=== PATIENT | male | born 1940 | race Caucasian/White ===

== ENCOUNTER 2020-01-24 12:56 | Inpatient (IN) ==
--- NOTE | 2020-01-24 13:24 | Emergency Department Note ---
HPI General Chief complaint: Fall Stated complaint: left hip pain, fall Time Seen by Provider: 01/24/20 13:06 Source: patient and EMS Mode of arrival: EMS Limitations: no limitations History of Present Illness HPI Narrative: Narrative: 79-year-old patient presenting to the emergency department chief complaint of fall. Past medical history is significant for compression fractures chronic pain. Patient reporting mechanism of fall was ground-level mechanical tripped on his oxygen tubing. Patient has not had recent change in medication. Patient did not have prodromal symptoms prior to fall. Patient did not have palpitations. Patient reporting injuries to the left hip which he has chronically had pain in it as well as left shoulder. Related Data Home Medications Medication Instructions Recorded Confirmed tramadol 50 mg tablet 50 mg PO Q8H PRN 01/12/19 01/24/20 docusate sodium [DOK] 100 mg PO BID 01/24/20 01/24/20 fentanyl 1 patch TRANSDERMAL Q72 01/24/20 01/24/20 xenvrxsojcc-gvledoamu-eyxjfflu 1 inh INHALATION DAILY 01/24/20 01/24/20 [Trelegy Ellipta] guaifenesin 1,200 - 2,400 mg PO Q12H 01/24/20 01/24/20 hyoscyamine sulfate 0.125 mg SUBLINGUAL 3-4XD PRN 01/24/20 01/24/20 lorazepam [Ativan] 0.5 - 1 mg PO Q2HP PRN 01/24/20 01/24/20 morphine concentrate 10 - 20 mg PO Q1-2HP PRN 01/24/20 01/24/20 sennosides [senna] 8.6 mg PO DAILY 01/24/20 01/24/20 Allergies Allergy/AdvReac Type Severity Reaction Status Date / Time No Known Drug Allergies Allergy Verified 11/24/18 09:32 Review of Systems ROS ROS Narrative: Narrative: All systems ED: reviewed and negative except as stated. PFSH Narrative Patient History Narrative: Narrative: Medical/Surgical/Family History All Active Problems (Updated 01/24/20 @ 15:01 by Noman Romero MD) Closed fracture of left hip (Acute) Anemia, unspecified (Chronic) Closed compression fracture of L2 vertebra (Chronic) Closed compression fracture of thoracic vertebra (Chronic) Shortness of breath (Chronic) Prostate enlargement (Chronic) COPD (chronic obstructive pulmonary disease) (Chronic) Falls (Chronic) Back pain (Chronic) Right hip pain (Chronic) Unexplained weight loss (Chronic) Tobacco use (Chronic) Renal mass (Chronic) Hemorrhage of rectum and anus (Chronic) Benign prostatic hyperplasia (Chronic) Orthostatic hypotension (Chronic) Neoplasm of ear (Chronic) Multiple pulmonary nodules (Chronic) Inguinal hernia without obstruction or gangrene (Chronic) Pure hypercholesterolemia (Chronic) Blood in stool (Chronic) 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) Unilateral emphysema (Chronic) Catheter-associated urinary tract infection (Chronic) Bladder neck obstruction (Chronic) Urinary tract infection (Chronic) Medical History (Updated 01/24/20 @ 15:01 by Noman Romero MD) Anemia, unspecified (Chronic) Back pain (Chronic) Benign neoplasm of colon (Chronic) Benign prostatic hyperplasia (Chronic) Bladder neck obstruction (Chronic) Blood in stool (Chronic) Catheter-associated urinary tract infection (Chronic) Closed compression fracture of L2 vertebra (Chronic) Closed compression fracture of thoracic vertebra (Chronic) COPD (chronic obstructive pulmonary disease) (Chronic) Dysplasia of prostate (Chronic) Falls (Chronic) Hemorrhage of rectum and anus (Chronic) Inguinal hernia without obstruction or gangrene (Chronic) Multiple pulmonary nodules (Chronic) Neoplasm of ear (Chronic) Orthostatic hypotension (Chronic) Prostate enlargement (Chronic) Pure hypercholesterolemia (Chronic) Renal mass (Chronic) Right hip pain (Chronic) Shortness of breath (Chronic) Tobacco use (Chronic) Unexplained weight loss (Chronic) Unilateral emphysema (Chronic) Surgical History (Updated 01/12/19 @ 11:19 by Jyothi Vargas) History of ankle surgery (Chronic ~1978) Right ankle reconstruction. History of left inguinal hernia repair (Chronic 12/04/14) Family History (Updated 01/12/19 @ 11:27 by Jyothi Vargas) Other No pertinent family history Social History Smoking Status: Current some day smoker Alcohol Intake Frequency: does not drink Substance Use: marijuana Exam Narrative Narrative: Narrative: Primary survey: Airway: Patient without visible external evidence of airway compromise no acute trauma to the oral maxillofacial area is appreciated Breathing: pt with spontaneous respirations, with excellent oxygenation on initial evaluation Circulation: Patient without obvious external hemorrhage in need of acute control, patient is perfusing extremities well without evidence of shock Disability: Basic neurological examination reveals moving all extremities, mentating appropriately; GCS 15 Secondary survey: General: Alert, interactive, appropriate Head: Atraumatic, normocephalic Eyes: Extraocular movements intact, PERRLA Neck: Trachea midline, full range of motion Chest: Symmetrical chest wall rise, clear to auscultation bilateral without wheezes rales crackles or rubs Cardiovascular: Patient with excellent perfusion to the extremities, regular rate and rhythm without M/R/G Abdomen: Nontender nondistended normoactive bowel sounds no masses no hepatosplenomegaly no rebound no guarding Extremities: Full range of motion joints with the exception of the left hip having significant pain also pain in the left shoulder more anteriorly than anywhere else, extremities are warm well perfused no evidence of neurovascular compromise Neuro: Alert, oriented x3, cranial nerves II through XII grossly intact, normal gait Psychiatric: Normal affect normal mood General Limitations: no limitations Course Vital Signs Vital signs: Vital Signs Temperature 97.6 F 01/24/20 12:56 Pulse Rate 70 01/24/20 12:56 Respiratory Rate 18 01/24/20 12:56 Blood Pressure 118/76 01/24/20 12:56 Pulse Oximetry (%) 99 01/24/20 12:56 Temperature 97.6 F 01/24/20 12:56 Pulse Rate 66 01/24/20 15:37 Respiratory Rate 18 01/24/20 12:56 Blood Pressure 118/71 01/24/20 15:37 Pulse Oximetry (%) 99 01/24/20 15:37 [facility] MDM Narrative Medical decision making narrative: Narrative: Focus of initial assessment was hemodynamic stability, however this was frequently reassessed during stay in the emergency department as this is a highly dynamic aspect of trauma. Focus was on injuries to the head chest abdomen and pelvis primarily with additional concerns for extremity injury taking care to avoid distracting injuries. Despite patient appearing well we assumed there were potential severe injuries that we need to identify. In this patient's case the following injuries were identified right hip strain sprain, right hip femoral neck fracture, left shoulder strain sprain. Differential diagnosis for the fall includes medication induced, psychiatric disorders, syncope, presyncope, vertigo, electrolyte abnormality, hypoglycemia, cardiac arrhythmia, postural changes, dehydration, and brainstem lesions. Patient did sustain ground-level mechanical fall. Patient with x-rays and imaging to areas of concern to assess for potential fracture/dislocation. Patient noted to have a fracture of his right hip femoral neck. Pain controlled with fentanyl. Discussed case with Dr. Lopez and the consensus medical opinion is patient needs surgical repair. Discussed the case with and the consensus medical opinion is to admit the patient under the medical service with orthopedic surgery consulting. Lab Data Result diagrams: 01/24/20 13:15 01/24/20 13:15 Labs: Lab Results 01/24/20 01/24/20 Range/Units 13:15 13:15 WBC 8.7 (4.50-11.00) K/mcL RBC 3.89 L (4.63-6.08) M/mcL Hgb 12.4 L (13.7-17.5) g/dL Hct 38.4 L (40.1-51.0) % MCV 98.7 (80.0-100.0) fL MCH 31.9 (26.0-34.0) pg MCHC 32.3 (31.0-36.0) g/dL RDW 14.5 (11.5-14.5) % Plt Count 205 (140-440) K/mcL MPV 9.9 (7.4-10.4) fL Gran % 74.5 (38.0-78.0) % Lymph % (Auto) 17.1 (15.5-49.0) % [place] % (Auto) 6.8 (1.0-12.0) % Eos % (Auto) 1.3 (0.0-7.0) % Baso % (Auto) 0.3 (0.0-2.0) % Gran # 6.45 (1.80-8.00) K/mcL Lymph # (Auto) 1.48 L (1.50-4.80) K/mcL [place] # (Auto) 0.59 (0.10-0.90) K/mcL Eos # (Auto) 0.11 (0.00-0.70) K/mcL Baso # (Auto) 0.03 (0.00-0.30) K/mcL Sodium 142 (133-145) mmol/L Potassium 3.7 (3.3-5.1) mmol/L Chloride 105 (96-108) mmol/L Carbon Dioxide 27 (22-30) mmol/L Anion Gap 10.0 (8-16) BUN 20 (8-23) mg/dl Creatinine 0.8 (0.7-1.2) mg/dl GFR Calculation 85 Glucose 93 (70-105) mg/dL Calcium 8.3 L (8.6-10.4) mg/dl Total Bilirubin 0.5 (0.0-1.0) mg/dL AST 18 (0-37) U/l ALT 11 (0-40) U/l Alkaline Phosphatase 78 (39-117) U/L Total Protein 6.1 (5.9-8.4) gm/dL Albumin 3.0 L (3.2-5.2) gm/dL Globulin 3.1 (2.2-3.7) gm/dL Albumin/Globulin Ratio 1.0 (1.0-2.3) Discharge Plan Patient/Caregiver Discharge Instructions Pt seen by PATHOLOGY TRANSCRIPTIONIST/PA only: No Clinical Impression: Closed fracture of left hip Qualifiers: Encounter type: initial encounter Qualified Code(s): S72.002A - Fracture of unspecified part of neck of left femur, initial encounter for closed fracture Patient Disposition: Xfer As Inpt ([facility]) Condition: Fair Follow up with: Larissa Longoria MD [Primary Care Provider] - Prescriptions: No Action tramadol [Ultram] 50 mg tablet 50 mg PO Q8H PRN (Reason: Pain) RF: 0 lorazepam [Ativan] 0.5 mg tablet 0.5 - 1 mg PO Q2HP PRN (Reason: Anxiety) RF: 0 fentanyl 12 mcg/hr patch 72 hour 1 patch transdermal Q72 RF: 0 morphine concentrate 100 mg/5 mL (20 mg/mL) Solution 10 - 20 mg PO Q1-2HP PRN (Reason: Pain) RF: 0 guaifenesin 1,200 mg Tablet Extended Release 12hr 1,200 - 2,400 mg PO Q12H RF: 0 docusate sodium [DOK] 100 mg capsule 100 mg PO BID RF: 0 hyoscyamine sulfate 0.125 mg tablet, sublingual 0.125 mg sublingual 3-4XD PRN (Reason: Nausea) RF: 0 Trelegy Ellipta 100-62.5-25 mcg blister with device 1 inh INHALATION DAILY RF: 0 senna 8.6 mg Capsule 8.6 mg PO DAILY RF: 0
[2020-01-24 13:53] LABS: Basophils # (Auto) 0.03 K/mcL (0.00-0.30); Basophils % (Auto) 0.3 % (0.0-2.0); Eosinophils # (Auto) 0.11 K/mcL (0.00-0.70); Eosinophils % (Auto) 1.3 % (0.0-7.0); Granulocytes % (Auto) 74.5 % (38.0-78.0); Hematocrit 38.4 % (40.1-51.0); Hemoglobin 12.4 g/dL (13.7-17.5); Lymphocytes # (Auto) 1.48 K/mcL (1.50-4.80); Lymphocytes % (Auto) 17.1 % (15.5-49.0); Mean Cell Volume 98.7 fL (80.0-100.0); Mean Corpuscular HGB Conc 32.3 g/dL (31.0-36.0); Mean Platelet Volume 9.9 fL (7.4-10.4); Monocytes # (Auto) 0.59 K/mcL (0.10-0.90); Monocytes % (Auto) 6.8 % (1.0-12.0); Platelet Count 205 K/mcL (140-440); RBC 3.89 M/mcL (4.63-6.08); Red Cell Distribution Width 14.5 % (11.5-14.5); WBC 8.7 K/mcL (4.50-11.00)
[2020-01-24 14:21] LABS: ALT/SGPT 11 U/l (0-40); AST/SGOT 18 U/l (0-37); Alkaline Phosphatase 78 U/L (39-117); Bilirubin,Total 0.5 mg/dL (0.0-1.0); Blood Urea Nitrogen 20 mg/dl (8-23); Calcium 8.3 mg/dl (8.6-10.4); Carbon Dioxide 27 mmol/L (22-30); Chloride 105 mmol/L (96-108); Globulin 3.1 gm/dL (2.2-3.7); Glomerular Filtration Rate 85; Glucose 93 mg/dL (70-105)
--- NOTE | 2020-01-24 15:12 | XRay Report ---
HISTORY: Fell with left shoulder injury FINDINGS: No fracture or dislocation are present. There is moderate osteoarthritis of the glenohumeral joint and mild arthritis at the acromioclavicular joint. Medial to the neck of the humerus there is a 1.6 cm calcification with sclerotic borders. This is probably heterotopic calcification. IMPRESSION: Arthritis and no fracture Interpreted and Authenticated by: Noe Coleman 01/24/20
--- NOTE | 2020-01-24 15:13 | XRay Report ---
HISTORY: Fell left hip injury FINDINGS: There is an acute transverse fracture through the femoral neck. The femur is retracted proximally and there is rotation of the femoral head. No callus has formed. Patient has diffuse osteoporosis throughout the pelvis and hips. The right hip is normal. Degenerative changes are seen in the lumbar spine. IMPRESSION: Fractured left femoral neck with moderate deformity Interpreted and Authenticated by: Noe Coleman 01/24/20
--- NOTE | 2020-01-24 15:15 | XRay Report ---
HISTORY: Fell, hip fracture, preop FINDINGS: Lungs are mildly hyperinflated. 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 There is no evidence of pneumonia, mass or congestive heart failure. The heart size is normal. IMPRESSION: COPD with pulmonary fibrosis Interpreted and Authenticated by: Noe Coleman 01/24/20
[2020-01-24] MEDS: fentaNYL 100 MCG/2 ML VIAL IV PRN ×2 (15:40→18:29)
--- NOTE | 2020-01-24 16:48 | Internal Med History&Physical ---
HPI History of Present Illness Patient information: Note initiated : 01/24/20 at 4:44 pm Service Date, if different from initiated Date: [] Patient: Gil Nicholas a 79 y/o M admitted on for left hip pain, fall. Chief Complaint: [] History of present illness: Mr. Nicholas is a 79 year old M presents to the ED with left hip pain. Patient was walking and tripped on his oxygen tube falling on his left hip with immediate pain. ED and found to have a left hip fracture. 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 He continues to smoke. Work-up in the ED unremarkable labs and imaging. Jessica contacted. Patient is high risk for surgery given his end-stage COPD and he understands the risks perioperatively. Review of Systems: Positive as above. Denies headache/fever/chills/nausea/vomiting/chest or abdominal pain/cough/dyspnea/diarrhea. 10 point review of system reviewed negative [facility] Medical History (Updated 01/24/20 @ 15:01 by Noman Romero MD) Anemia, unspecified (Chronic) Back pain (Chronic) Benign neoplasm of colon (Chronic) Benign prostatic hyperplasia (Chronic) Bladder neck obstruction (Chronic) Blood in stool (Chronic) Catheter-associated urinary tract infection (Chronic) Closed compression fracture of L2 vertebra (Chronic) Closed compression fracture of thoracic vertebra (Chronic) COPD (chronic obstructive pulmonary disease) (Chronic) Dysplasia of prostate (Chronic) Falls (Chronic) Hemorrhage of rectum and anus (Chronic) Inguinal hernia without obstruction or gangrene (Chronic) Multiple pulmonary nodules (Chronic) Neoplasm of ear (Chronic) Orthostatic hypotension (Chronic) Prostate enlargement (Chronic) Pure hypercholesterolemia (Chronic) Renal mass (Chronic) Right hip pain (Chronic) Shortness of breath (Chronic) Tobacco use (Chronic) Unexplained weight loss (Chronic) Unilateral emphysema (Chronic) Surgical History (Updated 01/12/19 @ 11:19 by Jyothi Vargas) History of ankle surgery (Chronic ~1978) Right ankle reconstruction. History of left inguinal hernia repair (Chronic 12/04/14) Family History (Updated 01/12/19 @ 11:27 by Jyothi Vargas) Other No pertinent family history Social History (Updated 01/24/20 @ 16:46 by Renzo Ferrara DO) marital status: single smoking status: Current some day smoker alcohol intake frequency: does not drink substance use type: marijuana additional history: Family history patient says both parents had heart disease Social history: Patient smokes a pack per day drinks alcohol socially lives by himself MEDS/ALLERGIES Home Medications and Allergies Home Medications Medication Instructions Recorded Confirmed Type tramadol 50 mg tablet 50 mg PO Q8H PRN 01/12/19 01/24/20 History docusate sodium [DOK] 100 mg PO BID 01/24/20 01/24/20 History fentanyl 1 patch TRANSDERMAL Q72 01/24/20 01/24/20 History zwfxtcgobft-aelxlgmlc-dxdoddmh 1 inh INHALATION DAILY 01/24/20 01/24/20 History [Trelegy Ellipta] guaifenesin 1,200 - 2,400 mg PO Q12H 01/24/20 01/24/20 History hyoscyamine sulfate 0.125 mg SUBLINGUAL 3-4XD PRN 01/24/20 01/24/20 History lorazepam [Ativan] 0.5 - 1 mg PO Q2HP PRN 01/24/20 01/24/20 History morphine concentrate 10 - 20 mg PO Q1-2HP PRN 01/24/20 01/24/20 History sennosides [senna] 8.6 mg PO DAILY 01/24/20 01/24/20 History Allergies Allergy/AdvReac Type Severity Reaction Status Date / Time No Known Drug Allergies Allergy Verified 11/24/18 09:32 EXAM Constitutional Vitals: Temp Pulse Resp BP Pulse Ox 97.6 F 66 18 118/71 99 01/24/20 12:56 01/24/20 15:37 01/24/20 12:56 01/24/20 15:37 01/24/20 15:37 Exam: General: Alert, Awake, No acute Distress Eyes/N/T: EOMI, PERRL, dry MM Head/Neck: neck supple, normocephalic atraumatic CV: RRR, No murmurs, normal s1/s2 Pulm: b/l diminished, for long expiratory phase, no wheezing Abd: soft, nontender, +BS x4 Ext: no clubbing/cyanosis/edema Neuro: Alert, no focal deficits, moves all extremities, CN 2-12 grossly intact, symmetrical strength b/l upper/lower, sensations intact b/l upper/lower Skin: warm/dry DATA Data Completed and Pending Labs on day of discharge: Labs from last 24 hours 01/24/20 01/24/20 13:15 13:15 WBC 8.7 RBC 3.89 L Hgb 12.4 L Hct 38.4 L MCV 98.7 MCH 31.9 MCHC 32.3 RDW 14.5 Plt Count 205 MPV 9.9 Gran % 74.5 Lymph % (Auto) 17.1 [place] % (Auto) 6.8 Eos % (Auto) 1.3 Baso % (Auto) 0.3 Gran # 6.45 Lymph # (Auto) 1.48 L [place] # (Auto) 0.59 Eos # (Auto) 0.11 Baso # (Auto) 0.03 Sodium 142 Potassium 3.7 Chloride 105 Carbon Dioxide 27 Anion Gap 10.0 BUN 20 Creatinine 0.8 GFR Calculation 85 Glucose 93 Calcium 8.3 L Total Bilirubin 0.5 AST 18 ALT 11 Alkaline Phosphatase 78 Total Protein 6.1 Albumin 3.0 L Globulin 3.1 Albumin/Globulin Ratio 1.0 A/P Narrative A/P Narrative: A: *Left hip fracture: s/p GLF *COPD(2.5L): on hospice for copd *Tobacco abuse: *Chronic pain: *Anxiety: * P: -Patient at increased risk perioperatively given his end-stage COPD. Patient understands risks, including . -dr Lopez for orthopedic surgery -Pain control -Supplemental O2 and as needed nebs -preop cxr/ekg/ua - -PT/OT -ppx: Postop per Ortho DNR Time Spent With Patient Time: Total time spent is greater than 50% in coordination of care (as documented) at patient's floor/unit and/or counseling patient:
--- NOTE | 2020-01-24 18:20 | Orthopedic History & Physical ---
HPI History of Present Illness Patient information: Note initiated : 01/24/20 at 6:16 pm Service Date, if different from initiated Date: [] Patient: Gil Nicholas a 79 y/o M admitted on for left hip pain, fall. Chief Complaint: [] History of present illness: Mr. Nicholas is a 79 year old Male who had a fall at home today prompting his evaluation in the ED for left hip pain. He was discovered to have a displaced femoral neck fracture of the left hip prompting Orthopaedics consultation. He is currently resting in bed with pain in his left hip. He reports no other pain or symptoms. He denies any chest pain, headache, neck pain, other injuries, weakness, numbness/tingling, or any other acute symptoms. Review of Systems All systems: reviewed and no additional remarkable complaints except as stated [facility] Medical History (Updated 01/24/20 @ 18:25 by Simeon Rivera PA-C) Anemia, unspecified (Chronic) Back pain (Chronic) Benign neoplasm of colon (Chronic) Benign prostatic hyperplasia (Chronic) Bladder neck obstruction (Chronic) Blood in stool (Chronic) Catheter-associated urinary tract infection (Chronic) Closed compression fracture of L2 vertebra (Chronic) Closed compression fracture of thoracic vertebra (Chronic) COPD (chronic obstructive pulmonary disease) (Chronic) Dysplasia of prostate (Chronic) Falls (Chronic) Hemorrhage of rectum and anus (Chronic) Inguinal hernia without obstruction or gangrene (Chronic) Multiple pulmonary nodules (Chronic) Neoplasm of ear (Chronic) Orthostatic hypotension (Chronic) Prostate enlargement (Chronic) Pure hypercholesterolemia (Chronic) Renal mass (Chronic) Right hip pain (Chronic) Shortness of breath (Chronic) Tobacco use (Chronic) Unexplained weight loss (Chronic) Unilateral emphysema (Chronic) Surgical History (Updated 01/12/19 @ 11:19 by Jyothi Vargas) History of ankle surgery (Chronic ~1978) Right ankle reconstruction. History of left inguinal hernia repair (Chronic 12/04/14) Family History (Updated 01/12/19 @ 11:27 by Jyothi Vargas) Other No pertinent family history Social History (Updated 01/24/20 @ 16:46 by Renzo Ferrara DO) marital status: single smoking status: Current some day smoker alcohol intake frequency: does not drink substance use type: marijuana additional history: Family history patient says both parents had heart disease Social history: Patient smokes a pack per day drinks alcohol socially lives by himself MEDS/ALLERGIES Home Medications and Allergies Home Medications Medication Instructions Recorded Confirmed Type tramadol 50 mg tablet 50 mg PO Q8H PRN 01/12/19 01/24/20 History docusate sodium [DOK] 100 mg PO BID 01/24/20 01/24/20 History fentanyl 1 patch TRANSDERMAL Q72 01/24/20 01/24/20 History sqrtlprwjcf-grgzhbdqd-kuerjxrf 1 inh INHALATION DAILY 01/24/20 01/24/20 History [Trelegy Ellipta] guaifenesin 1,200 - 2,400 mg PO Q12H 01/24/20 01/24/20 History hyoscyamine sulfate 0.125 mg SUBLINGUAL 3-4XD PRN 01/24/20 01/24/20 History lorazepam [Ativan] 0.5 - 1 mg PO Q2HP PRN 01/24/20 01/24/20 History morphine concentrate 10 - 20 mg PO Q1-2HP PRN 01/24/20 01/24/20 History sennosides [senna] 8.6 mg PO DAILY 01/24/20 01/24/20 History Allergies Allergy/AdvReac Type Severity Reaction Status Date / Time No Known Drug Allergies Allergy Verified 11/24/18 09:32 Physical Examination Hip left: Gait: other (unable to walke) Tenderness with palpation: anterior, posterior, medial, lateral, greater trochanter and other Pain with motion: internal rotation and hip flexion, internal rotation and hip extension, external rotation and hip flexion, external rotation and hip extension and other Vital Signs Vital signs: Temp Pulse Resp BP Pulse Ox 97.6 F 83 18 120/86 96 01/24/20 12:56 01/24/20 17:41 01/24/20 12:56 01/24/20 17:41 01/24/20 17:41 Constitutional General appearance: no acute distress and alert EENT Eyes pulmonary: nonicteric ENT: oropharynx moist Neck: supple, no lymphadenopathy and no JVD Respiratory Auscultation: bilateral: diminished breath sounds, wheezes and rhonchi Cardiovascular Cardiovascular: regular rate and rhythm Gastrointestinal Gastrointestinal: normoactive bowel sounds, non-tender and non-distended Integumentary Integumentary: normal Extremities Extremities: pulses normal and other (see above hip exam) Neurologic Neurological: normal mental status and CN II-XII normal Psychiatric Psychiatric: mood appropriate Results Labs Result Diagrams: 01/24/20 13:15 01/24/20 13:15 Labs: Abnormal lab results 01/24/20 01/24/20 Range/Units 13:15 13:15 RBC 3.89 L (4.63-6.08) M/mcL Hgb 12.4 L (13.7-17.5) g/dL Hct 38.4 L (40.1-51.0) % Lymph # (Auto) 1.48 L (1.50-4.80) K/mcL Calcium 8.3 L (8.6-10.4) mg/dl Albumin 3.0 L (3.2-5.2) gm/dL H & H 01/24/20 Range/Units 13:15 Hgb 12.4 L (13.7-17.5) g/dL Hct 38.4 L (40.1-51.0) % All other labs normal. A/P Assessment and plan (1) Transcervical fracture of left femur: Status: Acute Comment: I discussed the findings of the x-ray with the patient and treatment options. We discussed the risks and benefits of surgery. We will plan on a Left Hip hemiarthroplasty and the patient agrees and has elected to proceed with surgery. Hospitalists to manage COPD and surgery to be performed on 01-25-20. Time Spent With Patient Time: Total time spent is greater than 50% in coordination of care (as documented) at patient's floor/unit and/or counseling patient:
[2020-01-24] MEDS ORDERED: SENNOSIDES 1 TABLET PO PRN (19:33)
[2020-01-24] MEDS ORDERED: POLYETHYLENE GLYCOL 3350 17 GM PACKET PO PRN (19:33)
[2020-01-24] MEDS ORDERED: POTASSIUM CHLORIDE 40 MEQ in DEXTROSE 5% IN WATER 500 ML IV PRN (19:33)
[2020-01-24] MEDS ORDERED: IPRATROPIUM/ALBUTEROL 3 ML AMPUL.NEB NEB PRN (19:33)
[2020-01-24] MEDS ORDERED: ONDANSETRON 4 MG/2 ML VIAL IV PRN (19:33)
[2020-01-24] MEDS ORDERED: morphine 20 MG/ML ORAL.CONC PO PRN (19:33)
[2020-01-24] MEDS ORDERED: ACETAMINOPHEN W/CODEINE #3 1 TABLET PO PRN (19:33)
[2020-01-24] MEDS ORDERED: HYDROcodone/APAP 5/325MG TABLET PO PRN (19:33)
[2020-01-24] MEDS ORDERED: POTASSIUM CHLORIDE 20 MEQ TABLET PO PRN ×2 (19:33)
[2020-01-24] MEDS ORDERED: MAGNESIUM SULFATE 2 GM/50 ML BAG IV PRN (19:33)
[2020-01-24] MEDS: 0.9 % SODIUM CHLORIDE 1,000 ML IV SCH (19:44)
[2020-01-24] MEDS: 0.9 % SODIUM CHLORIDE 10 ML SYRINGE IV SCH (21:22)
[2020-01-24] MEDS: DOCUSATE SODIUM 100 MG CAPSULE PO SCH (21:29)
[2020-01-24] MEDS: FAMOTIDINE/PF 20 MG/2 ML VIAL IV SCH (21:29)
[2020-01-24 21:39] LABS: Appearance,Urine CLEAR; Bilirubin,Urine NEG (NEG); Color,Urine YELLOW; Culture Indicated,Urine NO; Glucose,Urine (UA) NEGATIVE (NEG); Ketones,Urine 5/TR mg/dL (NEG); Leukocyte Esterase,Urine NEG /uL (NEG); Nitrate,Urine NEG (NEG); Protein,Urine NEG (NEG); Specific Gravity,Urine 1.023 (1.000-1.035); Urine Blood NEG mg/dL (<0.03)
[2020-01-25] MEDS: 0.9 % SODIUM CHLORIDE 10 ML SYRINGE IV SCH ×3 (04:02→21:43)
[2020-01-25] MEDS: LORazepam 0.5 MG TABLET PO PRN ×2 (04:08→22:14)
[2020-01-25 07:09] LABS: Basophils # (Auto) 0.03 K/mcL (0.00-0.30); Basophils % (Auto) 0.3 % (0.0-2.0); Eosinophils # (Auto) 0.05 K/mcL (0.00-0.70); Eosinophils % (Auto) 0.4 % (0.0-7.0); Granulocytes % (Auto) 84.3 % (38.0-78.0); Hematocrit 35.4 % (40.1-51.0); Hemoglobin 11.4 g/dL (13.7-17.5); Lymphocytes # (Auto) 1.05 K/mcL (1.50-4.80); Mean Cell Volume 101.1 fL (80.0-100.0); Mean Corpuscular HGB Conc 32.2 g/dL (31.0-36.0); Mean Platelet Volume 10.3 fL (7.4-10.4); Platelet Count 199 K/mcL (140-440); Red Cell Distribution Width 14.6 % (11.5-14.5); WBC 11.7 K/mcL (4.50-11.00)
--- NOTE | 2020-01-25 07:26 | Internal Med Progress Note ---
SUBJECTIVE Subjective Patient information: Note initiated : 01/25/20 at 7:24 am Service Date, if different from initiated Date: [] Patient: Gil Nicholas a 79 y/o M admitted on 01/24/20 for left hip pain, fall. Chief Complaint: [] Interval history: History of present illness: Mr. Nicholas is a 79 year old M presents to the ED with left hip pain. Patient was walking and tripped on his oxygen tube falling on his left hip with immediate pain. ED and found to have a left hip fracture. 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 He continues to smoke. Work-up in the ED unremarkable labs and imaging. Jessica contacted. Patient is high risk for surgery given his end-stage COPD and he understands the risks perioperatively. 01/24 No overnight events or new complaints. Patient scheduled for surgery later today. Review of Systems: denies headache/fever/chills/nausea/vomiting/chest or abdominal pain/cough/dyspnea/diarrhea. Otherwise see above. Constitutional Vitals: Vital Signs Temp Pulse Resp BP Pulse Ox 98.6 F 71 14 115/69 97 01/25/20 07:02 01/25/20 07:02 01/25/20 07:02 01/25/20 07:02 01/25/20 07:02 Period Temp Pulse Resp BP Sys/Moise Pulse Ox Last 24 Hr 97.6 F-98.9 F 66-94 14-20 115-127/67-86 92-99 Intake and Output 01/24/20 01/25/20 01/25/20 21:59 05:59 13:59 Output Total 75 1 Balance -75 -1 Weight 54.063 kg Intake & Output: Intake & Output 01/24/20 01/25/20 01/25/20 21:59 05:59 13:59 Output Total 75 1 Balance -75 -1 Weight 54.063 kg Output: Void Amount 75 # of times incontinent of urine 1 Other: Urine Color Bright Yellow Exam: General: Alert, Awake, No acute Distress Eyes/N/T: EOMI, Head/Neck: neck supple, CV: RRR, No murmurs, Pulm: b/l diminished, for long expiratory phase, no wheezing Abd: soft, nontender, +BS x4 Ext: no clubbing/cyanosis/edema Neuro: Alert, no focal deficits, moves all extremities, Skin: warm/dry OBJ DATA Labs CBC & Chem 7: 01/25/20 05:13 01/25/20 05:13 Labs: Abnormal Lab Results 01/25/20 01/24/20 01/24/20 05:13 20:28 13:15 WBC 11.7 H RBC 3.50 L Hgb 11.4 L Hct 35.4 L MCV 101.1 H RDW 14.6 H Gran % 84.3 H Lymph % (Auto) 9.0 L Gran # 9.87 H Lymph # (Auto) 1.05 L Calcium 8.3 L Albumin 3.0 L Urine Ketones 5/tr A Urine Urobilinogen 2.0 A 01/24/20 13:15 WBC RBC 3.89 L Hgb 12.4 L Hct 38.4 L MCV RDW Gran % Lymph % (Auto) Gran # Lymph # (Auto) 1.48 L Calcium Albumin Urine Ketones Urine Urobilinogen Meds: Medications Hydrocodone Bitart/Acetaminophen ([place] 5/325mg) 1 tab PO Q4HP PRN PRN Reason: PAIN LEVEL 3-6 Last Admin: 01/24/20 21:29 Dose: 1 tab Documented by: Albuterol/Ipratropium (Duoneb) 3 ml NEB Q4HP PRN PRN Reason: Shortness Of Breath Docusate Sodium (Colace) 100 mg PO BID [facility] Last Admin: 01/24/20 21:29 Dose: 100 mg Documented by: Famotidine (Pepcid) 20 mg IV Q12 [facility] Last Admin: 01/24/20 21:29 Dose: 20 mg Documented by: Fentanyl (Duragesic) 12 mcg TOPICAL Q72 [facility] Potassium Chloride 40 meq/ (Dextrose) 520 mls @ 130 mls/hr IV UD PRN PRN Reason: Potassium < 3 Magnesium Sulfate (Magnesium Sulfate) 2 gm in 50 mls @ 50 mls/hr IV UD PRN PRN Reason: Magnesium </= 1.6 Sodium Chloride (Sodium Chloride 0.9%) 1,000 mls @ 75 mls/hr IV .[id number] [facility] Stop: 01/25/20 22:12 Last Admin: 01/24/20 19:44 Dose: 75 mls/hr Documented by: Lorazepam (Ativan) 0.5 - 1 mg PO Q2HP PRN PRN Reason: Anxiety Last Admin: 01/25/20 04:08 Dose: 0.5 mg Documented by: Morphine Sulfate (Morphine) 10 - 20 mg PO Q1-2HP PRN; Protocol PRN Reason: Pain Morphine Sulfate (Morphine) 0 mg IV Q3HP PRN PRN Reason: Pain Last Admin: 01/25/20 01:54 Dose: 3 mg Documented by: Ondansetron HCl (Zofran) 4 mg IV Q4HP PRN PRN Reason: Nausea And Vomiting Fluticasone- Umeclidin-Vilanter [ Trelegy Ellipta] Inh1 1 dose INH DAILY [facility] Polyethylene Glycol (Miralax) 17 gm PO DAILYP PRN PRN Reason: Constipation Potassium Chloride (Kdur) 40 meq PO UD PRN PRN Reason: Potssium is 3-3.5 Potassium Chloride (Kdur) 40 meq PO UD PRN PRN Reason: Potassium < 3 Scopolamine (Transderm-Scop) 1 patch TOPICAL PREOP PRN PRN Reason: Nausea And Vomiting Stop: 01/25/20 23:59 Senna (Senokot) 1 tab PO DAILY [facility] Senna (Senokot) 2 tab PO DAILYP PRN PRN Reason: Constipation Sodium Chloride (Saline Flush) 10 ml IV Q8 [facility] Last Admin: 01/25/20 04:02 Dose: 10 ml Documented by: A/P Narrative A/P Narrative: A: *Left hip fracture: s/p GLF *COPD(2.5L): on hospice for copd *Tobacco abuse: *Chronic pain: *Anxiety: *?underlying dementia: P: -Patient at increased risk perioperatively given his end-stage COPD & age. Patient understands risks, including . -dr Lopez for orthopedic surgery -Pain control -Supplemental O2 and as needed nebs -PT/OT -ppx: Postop per Ortho DNR Time Spent With Patient Time: Total time spent is greater than 50% in coordination of care (as documented) at patient's floor/unit and/or counseling patient: QUALITY VTE Deep Vein Thrombosis/Pulmonary Embolism Present on Admission: No
[2020-01-25 07:42] LABS: ALT/SGPT 11 U/l (0-40); AST/SGOT 17 U/l (0-37); Albumin 2.7 gm/dL (3.2-5.2); Albumin/Globulin Ratio 0.9 (1.0-2.3); Alkaline Phosphatase 69 U/L (39-117); Bilirubin,Direct 0.3 mg/dL (0.0-0.3); Bilirubin,Total 0.8 mg/dL (0.0-1.0); Blood Urea Nitrogen 19 mg/dl (8-23); Calcium 7.9 mg/dl (8.6-10.4); Carbon Dioxide 27 mmol/L (22-30); Chloride 106 mmol/L (96-108); Globulin 2.9 gm/dL (2.2-3.7); Glomerular Filtration Rate 90; Glucose 73 mg/dL (70-105); Lactate Dehydrogenase 201 U/L (94-250); Phosphorous 3.2 mg/dL (2.7-4.5); Triglycerides 58 mg/dl (<150); Uric Acid 3.5 mg/dL (2.5-8.0)
[2020-01-25] MEDS: DOCUSATE SODIUM 100 MG CAPSULE PO SCH ×2 (08:00→21:43)
[2020-01-25] MEDS ORDERED: SCOPOLAMINE 1 PATCH PATCH TOPICAL PRN (08:00)
[2020-01-25] MEDS: [UNRECOGNIZED DRUG - OTHER] INH SCH (08:03)
[2020-01-25] MEDS: VILANTEROL INH SCH (08:03)
[2020-01-25] MEDS: UMECLIDINIUM INH SCH (08:03)
[2020-01-25] MEDS: FAMOTIDINE/PF 20 MG/2 ML VIAL IV SCH ×2 (08:51→21:43)
[2020-01-25] MEDS: 0.9 % SODIUM CHLORIDE 1,000 ML IV SCH (08:52)
[2020-01-25] MEDS ORDERED: SENNOSIDES 1 TABLET PO SCH ×2 (09:00→21:00)
[2020-01-25] MEDS: fentaNYL 12 MCG PATCH TOPICAL SCH (11:13)
[2020-01-25] MEDS ORDERED: ceFAZolin 2 GM in DEXTROSE 5% IN WATER 50 ML IV SCH (15:00)
[2020-01-25] MEDS ORDERED: TRANEXAMIC ACID 1,000 MG/10 ML VIAL IV ONE ×3 (16:48→18:53)
[2020-01-25] MEDS ORDERED: PHENYLEPHRINE 10 MG/ML VIAL IV ONE (16:48)
[2020-01-25] MEDS ORDERED: PROPOFOL 200 MG/20 ML VIAL IV ONE (16:48)
[2020-01-25] MEDS ORDERED: KETAMINE 100 MG/ML ML IV ONE (16:48)
--- NOTE | 2020-01-25 18:01 | General Surgery Procedure Note ---
Date of procedure: Note initiated : 01/25/20 at 6:00 pm Service Date, if different from initiated Date: [] Pre-op diagnosis: left hip femoral neck fracture Post-op diagnosis: same Procedure: left hip hemiarthroplasty Grafts/Implants: depuy Anesthesia: spinal Surgeon: Ramírez Lopez Services Account Manager: Anthony Bauer Estimated blood loss: 150 Pathology: none sent Condition: stable Disposition: PACU
[2020-01-25] MEDS ORDERED: MAGNESIUM HYDROXIDE 30 ML ORAL.SUSP PO PRN (18:03)
[2020-01-25] MEDS ORDERED: POLYETHYLENE GLYCOL 3350 17 GM PACKET PO PRN (18:03)
[2020-01-25] MEDS ORDERED: BISACODYL 10 MG SUPP.RECT PR PRN (18:03)
[2020-01-25] MEDS ORDERED: BENZOCAINE/MENTHOL 1 LOZENGE PO PRN (18:03)
[2020-01-25] MEDS ORDERED: FLEETS ADULT ENEMA PR PRN (18:03)
[2020-01-25] MEDS ORDERED: HYDROcodone/APAP 5/325MG TABLET PO PRN (18:03)
--- NOTE | 2020-01-25 18:03 | Discharge Plan ---
DC Instructions-General Patient Instructions Dressing Care: May shower in 2 days Discharge Plan Patient/Caregiver Discharge Instructions Activity: as per physical therapy Diet: Regular Diet Prescriptions: No Action tramadol [Ultram] 50 mg tablet 50 mg PO Q8H PRN (Reason: Pain) RF: 0 lorazepam [Ativan] 0.5 mg tablet 0.5 - 1 mg PO Q2HP PRN (Reason: Anxiety) RF: 0 morphine concentrate 100 mg/5 mL (20 mg/mL) Solution 10 - 20 mg PO Q1-2HP PRN (Reason: Pain) RF: 0 guaifenesin 1,200 mg Tablet Extended Release 12hr 1,200 - 2,400 mg PO Q12H RF: 0 docusate sodium [DOK] 100 mg capsule 100 mg PO BID RF: 0 hyoscyamine sulfate 0.125 mg tablet, sublingual 0.125 mg sublingual 3-4XD PRN (Reason: Nausea) RF: 0 Trelegy Ellipta 100-62.5-25 mcg blister with device 1 inh INHALATION DAILY RF: 0 senna 8.6 mg Capsule 8.6 mg PO DAILY RF: 0 fentanyl 50 mcg/hr Patch 72 Hour 1 patch TRANSDERMAL Q72H RF: 0 Follow Up Plan Follow up with: Larissa Longoria MD [Primary Care Provider] - Ramírez Lopez MD [Physician] - Patient Disposition: Hospice - Home Prognosis: Fair Rehab Potential: Good I certify that the patient requires SNF services: Yes Overall status at discharge: patient is progressing back to baseline Discharge Orders: Discharge Order (Routine); Ordered 01/27/20 Ordered By: Ramírez Lopez
[2020-01-25] MEDS ORDERED: ONDANSETRON 4 MG/2 ML VIAL IV PRN (18:35)
[2020-01-25] MEDS ORDERED: PROMETHAZINE 25 MG/ML VIAL IV PRN (18:35)
[2020-01-25] MEDS ORDERED: LACTATED RINGERS 250 ML IV PRN (18:35)
[2020-01-25] MEDS ORDERED: IPRATROPIUM/ALBUTEROL 3 ML AMPUL.NEB NEB PRN (18:35)
[2020-01-25] MEDS ORDERED: MEPERIDINE 25 MG/ML SYRINGE IV PRN (18:35)
[2020-01-25] MEDS ORDERED: LACTATED RINGERS 1,000 ML IV SCH (18:45)
[2020-01-25] MEDS: ENOXAPARIN 30 MG/0.3 ML SYRINGE SQ SCH (21:42)
[2020-01-26] MEDS: ceFAZolin 1 GM VIAL IV SCH ×2 (00:50→09:08)
[2020-01-26] MEDS: 0.9 % SODIUM CHLORIDE 10 ML SYRINGE IV SCH (06:05)
[2020-01-26 06:33] LABS: Basophils # (Auto) 0.03 K/mcL (0.00-0.30); Basophils % (Auto) 0.3 % (0.0-2.0); Eosinophils # (Auto) 0.02 K/mcL (0.00-0.70); Eosinophils % (Auto) 0.2 % (0.0-7.0); Granulocytes % (Auto) 83.9 % (38.0-78.0); Hematocrit 33.8 % (40.1-51.0); Hemoglobin 11.1 g/dL (13.7-17.5); Lymphocytes # (Auto) 0.91 K/mcL (1.50-4.80); Lymphocytes % (Auto) 7.6 % (15.5-49.0); Mean Cell Volume 98.8 fL (80.0-100.0); Mean Corpuscular HGB Conc 32.8 g/dL (31.0-36.0); Mean Platelet Volume 10.3 fL (7.4-10.4); Monocytes # (Auto) 0.95 K/mcL (0.10-0.90); Platelet Count 193 K/mcL (140-440); RBC 3.42 M/mcL (4.63-6.08); Red Cell Distribution Width 14.4 % (11.5-14.5); WBC 11.9 K/mcL (4.50-11.00)
[2020-01-26 06:45] LABS: INR 1.2 (0.9-1.1); Prothrombin Time 15.3 sec (11.9-14.5)
[2020-01-26 07:01] LABS: ALT/SGPT 14 U/l (0-40); AST/SGOT 28 U/l (0-37); Albumin 2.6 gm/dL (3.2-5.2); Albumin/Globulin Ratio 0.9 (1.0-2.3); Alkaline Phosphatase 66 U/L (39-117); Bilirubin,Direct 0.3 mg/dL (0.0-0.3); Bilirubin,Total 0.9 mg/dL (0.0-1.0); Blood Urea Nitrogen 18 mg/dl (8-23); Calcium 8.4 mg/dl (8.6-10.4); Carbon Dioxide 27 mmol/L (22-30); Chloride 105 mmol/L (96-108); Globulin 2.8 gm/dL (2.2-3.7); Glomerular Filtration Rate 85; Glucose 91 mg/dL (70-105); Lactate Dehydrogenase 215 U/L (94-250); Triglycerides 64 mg/dl (<150); Uric Acid 3.6 mg/dL (2.5-8.0)
[2020-01-26 07:03] LABS: Phosphorous 2.4 mg/dL (2.7-4.5)
--- NOTE | 2020-01-26 07:19 | Internal Med Progress Note ---
SUBJECTIVE Subjective Patient information: Note initiated : 01/26/20 at 7:17 am Service Date, if different from initiated Date: [] Patient: Gil Nicholas a 79 y/o M admitted on 01/24/20 for left hip pain, fall. Chief Complaint: [] Interval history: History of present illness: Mr. Nicholas is a 79 year old M presents to the ED with left hip pain. Patient was walking and tripped on his oxygen tube falling on his left hip with immediate pain. ED and found to have a left hip fracture. 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 He continues to smoke. Work-up in the ED unremarkable labs and imaging. Jessica contacted. Patient is high risk for surgery given his end-stage COPD and he understands the risks perioperatively. 01/24 No overnight events or new complaints. Patient scheduled for surgery later today. 01/25 Quite sleepy when I saw him this morning, somewhat arousable to answer simple questions. Had ORIF yesterday. Review of Systems: denies headache/fever/chills/nausea/vomiting/chest or abdominal pain/cough/dyspnea/diarrhea. Otherwise see above. Constitutional Vitals: Vital Signs Temp Pulse Resp BP Pulse Ox 98.3 F 78 18 116/65 95 01/26/20 04:00 01/26/20 04:00 01/26/20 04:00 01/26/20 04:00 01/26/20 04:00 Period Temp Pulse Resp BP Sys/Moise Pulse Ox Last 24 Hr 97.2 F-98.5 F 72-86 14-18 97-128/57-81 93-100 Intake and Output 01/25/20 01/26/20 01/26/20 21:59 05:59 13:59 Intake Total 50 240 Output Total 401 Balance 50 -161 Weight 54.885 kg Intake & Output: Intake & Output 01/25/20 01/26/20 01/26/20 21:59 05:59 13:59 Intake Total 50 240 Output Total 401 Balance 50 -161 Weight 54.885 kg Intake: IV 50 Ancef 2 gm In Dextrose 5% in 50 Water 50 ml @ 100 mls/hr IV PREOP [facility] Rx#:[id number] Oral 0 240 Output: Void Amount 400 # of times incontinent of urine 1 Other: Urine Appearance Clear Clear Urine Color Dark Yellow Dark Yellow Urine Odor Strong Strong Exam: General: sleeping but awakens, No acute Distress Eyes/N/T: EOMI, Head/Neck: neck supple, CV: RRR, No murmurs, Pulm: b/l diminished, for long expiratory phase, no wheezing Abd: soft, nontender, +BS x4 Ext: no clubbing/cyanosis/edema Neuro: Awakens from sleep, no focal deficits, moves all extremities, Skin: warm/dry OBJ DATA Labs CBC & Chem 7: 01/26/20 05:08 01/26/20 05:08 Labs: Abnormal Lab Results 01/26/20 01/26/20 01/26/20 05:08 05:08 05:07 WBC 11.9 H RBC 3.42 L Hgb 11.1 L Hct 33.8 L MCV RDW Gran % 83.9 H Lymph % (Auto) 7.6 L Gran # 10.03 H Lymph # (Auto) 0.91 L [place] # (Auto) 0.95 H PT 15.3 H INR 1.2 H Calcium 8.4 L Phosphorus 2.4 L Total Protein 5.4 L Albumin 2.6 L Albumin/Globulin Ratio 0.9 L Urine Ketones Urine Urobilinogen 01/25/20 01/25/20 01/24/20 05:13 05:13 20:28 WBC 11.7 H RBC 3.50 L Hgb 11.4 L Hct 35.4 L MCV 101.1 H RDW 14.6 H Gran % 84.3 H Lymph % (Auto) 9.0 L Gran # 9.87 H Lymph # (Auto) 1.05 L [place] # (Auto) PT INR Calcium 7.9 L Phosphorus Total Protein 5.6 L Albumin 2.7 L Albumin/Globulin Ratio 0.9 L Urine Ketones 5/tr A Urine Urobilinogen 2.0 A 01/24/20 01/24/20 13:15 13:15 WBC RBC 3.89 L Hgb 12.4 L Hct 38.4 L MCV RDW Gran % Lymph % (Auto) Gran # Lymph # (Auto) 1.48 L [place] # (Auto) PT INR Calcium 8.3 L Phosphorus Total Protein Albumin 3.0 L Albumin/Globulin Ratio Urine Ketones Urine Urobilinogen Meds: Medications Hydrocodone Bitart/Acetaminophen ([place] 5/325mg) 0 tab PO Q4HP PRN; Protocol PRN Reason: Per Pain Protocol Albuterol/Ipratropium (Duoneb) 3 ml NEB Q4HP PRN PRN Reason: Shortness Of Breath Bisacodyl (Dulcolax) 10 mg MO Q2-3DAYS PRN PRN Reason: Constipation Cefazolin Sodium (Ancef) 1 gm IV Q8H [facility] Stop: 01/26/20 08:01 Last Admin: 01/26/20 00:50 Dose: 1 gm Documented by: Docusate Sodium (Colace) 100 mg PO BID [facility] Last Admin: 01/25/20 21:43 Dose: 100 mg Documented by: Enoxaparin Sodium (Lovenox) 30 mg SQ BID [facility] Last Admin: 01/25/20 21:42 Dose: 30 mg Documented by: Famotidine (Pepcid) 20 mg IV Q12 [facility] Last Admin: 01/25/20 21:43 Dose: 20 mg Documented by: Fentanyl (Duragesic) 12 mcg TOPICAL Q72 [facility] Last Admin: 01/25/20 11:13 Dose: 12 mcg Documented by: Potassium Chloride 40 meq/ (Dextrose) 520 mls @ 130 mls/hr IV UD PRN PRN Reason: Potassium < 3 Magnesium Sulfate (Magnesium Sulfate) 2 gm in 50 mls @ 50 mls/hr IV UD PRN PRN Reason: Magnesium </= 1.6 Lorazepam (Ativan) 0.5 - 1 mg PO Q2HP PRN PRN Reason: Anxiety Last Admin: 01/25/20 22:14 Dose: 1 mg Documented by: Magnesium Hydroxide (Milk Of Magnesia) 30 ml PO BIDP PRN PRN Reason: Constipation Morphine Sulfate (Morphine) 0 mg IV Q1HP PRN; Protocol PRN Reason: Per Pain Protocol Last Admin: 01/26/20 00:50 Dose: 4 mg Documented by: Ondansetron HCl (Zofran) 4 mg IV Q4HP PRN PRN Reason: Nausea And Vomiting Fluticasone- Umeclidin-Vilanter [ Trelegy Ellipta] Inh1 1 dose INH DAILY [facility] Last Admin: 01/25/20 08:03 Dose: Not Given Documented by: Polyethylene Glycol (Miralax) 17 gm PO DAILYP PRN PRN Reason: Constipation Polyethylene Glycol (Miralax) 17 gm PO DAILYP PRN PRN Reason: Constipation Potassium Chloride (Kdur) 40 meq PO UD PRN PRN Reason: Potssium is 3-3.5 Potassium Chloride (Kdur) 40 meq PO UD PRN PRN Reason: Potassium < 3 Senna (Senokot) 2 tab PO HS [facility] Last Admin: 01/25/20 21:43 Dose: 2 tab Documented by: Sodium Biphosphate/Sodium Phosphate (Fleets Adult) 1 dose MO Q3-4DAYS PRN PRN Reason: Constipation Sodium Chloride (Saline Flush) 10 ml IV Q8 [facility] Last Admin: 01/26/20 06:05 Dose: Not Given Documented by: Throat Lozenges (Cepacol) 1 lozenge PO PRN PRN PRN Reason: Sore Throat A/P Assessment and plan (1) Transcervical fracture of left femur: Status: Acute Narrative A/P Narrative: A: *Left hip fracture s/p GLF: s/p ORIF(01/24) *COPD(2.5L): on hospice for copd *Tobacco abuse: *Chronic pain: *Anxiety: *?underlying dementia: P: -Patient at increased risk perioperatively given his end-stage COPD & age. Patient understands risks, including . -dr Lopez for orthopedic surgery -Pain control -Supplemental O2 and as needed nebs -PT/OT -ppx: Postop per Ortho lovenox DNR Time Spent With Patient Time: Total time spent is greater than 50% in coordination of care (as documented) at patient's floor/unit and/or counseling patient: QUALITY VTE Deep Vein Thrombosis/Pulmonary Embolism Present on Admission: No
--- NOTE | 2020-01-26 07:40 | XRay Report ---
HISTORY: Postop repair fractured left hip FINDINGS: There is a well-positioned hemiarthroplasty inserted in the proximal femur. This is well centered within the acetabulum. There is no fracture or abnormal soft tissue calcification. IMPRESSION: Well-positioned left hip prosthesis Interpreted and Authenticated by: Noe Coleman 01/26/20
--- NOTE | 2020-01-26 08:25 | Operative Note ---
DATE OF OPERATION: 01/25/2020 PREOPERATIVE DIAGNOSIS: Femoral neck fracture, left hip. POSTOPERATIVE DIAGNOSIS: Femoral neck fracture, left hip. PROCEDURE: Left hip hemiarthroplasty. SURGEON: Ramírez Lopez M.D. HOCKEY PLAYER SURGEON: Anthony Bauer PA-C. The PA's assistance was required for the safe and efficient completion of the entire case. This provider's expertise and technical skill were required throughout the case. The PA assisted with preoperative coordination, intraoperative retraction, wound closure, dressing and splint application, as well as postoperative documentation and care coordination. ANESTHESIA: Spinal with LMA assist. ESTIMATED BLOOD LOSS: 150 mL. COMPLICATIONS: None noted. SPECIMENS REMOVED: None. DRAINS: None. IMPLANTS: DePuy Smartset GMW gentamicin bone cement 40 grams x2; DePuy Cementralizer stem centralizer 12.0 mm cemented; DePuy [place] femoral stem tapered basic, cemented, size 7; DePuy modular [place] fracture head hip ball 54 mm diameter; DePuy modular [place] tapered spacer +5 mm. INDICATIONS: The patient fell and was unable to ambulate. Radiographs have confirmed a displaced femoral neck fracture. The patient was admitted to the hospital and underwent medical clearance. After a long discussion about treatment options, the patient elected to proceed with a hip hemiarthroplasty. The risks and benefits were discussed with the patient in detail including, but not limited to, the risks of anesthesia, problems with the heart or lungs related to anesthesia, infection, compromise or injury to the nerves and blood vessels, deep venous thrombosis, pulmonary embolism, pneumonia, continued pain after surgery, worsening pain or symptoms after surgery, swelling, loss of motion, instability, leg length discrepancy, and need for repeat surgery. DESCRIPTION OF PROCEDURE: The patient was seen in pre-anesthesia waiting room where all questions were answered and the correct side and site were identified and marked. The patient was then brought to the operating room and administered the anesthetic and given preoperative antibiotics. A time-out was then called. The patient was placed in the lateral decubitus position with all prominences well padded using the [place] frame and the extremity was prepped and draped in the usual sterile fashion. A standard posterior approach was made. We dissected through the skin and subcutaneous tissue to the deep fascia. The deep fascia was split in line with the incision and a [place] retractor was placed. We exposed, tagged, and incised the short external rotators and piriformis tendon and retracted them posteriorly to help protect the sciatic nerve which was palpated throughout the case. We then performed a T-capsulotomy and tagged the capsule edges. The hip was then dislocated and a femoral neck osteotomy was performed to the presurgical templated level, off the lesser trochanter. The head was removed and sized. The acetabulum was inspected and did not have a significant degree of osteoarthritis. All bone and fracture debris was removed. Our attention was now turned to the femur. We placed retractors for visualization, internally rotated the femur, and established intramedullary access. We incrementally broached our stem to a stable platform medial, lateral, and rotationally with the appropriate version. We then performed a calcar reaming off the broach. Trials were then placed and optimized for leg length, soft tissue tension, and stability. Best stability, length, and offset characteristics were obtained with these sizes. We removed all trials and impacted the femoral stem to its broached location using a fourth-generation cementing technique and placed the head. Final reduction was performed. Again, good stability, leg length, and offset characteristics were noted. We irrigated with three liters of antibiotic saline. We closed the capsule with #2 FiberWire. We closed the fascia with a combination of #2 Stratafix and 0 Vicryl. We closed the subcutaneous tissue and skin in layers out to zoey in the skin. A sterile pressure dressing and abduction wedge was applied. All needle and sponge counts were correct. The patient was transferred to the recovery room in stable condition. Laverne Job ID: [id number] Doc ID: [id number] Janee Lopez MD
[2020-01-26] MEDS: UMECLIDINIUM INH SCH (09:11)
[2020-01-26] MEDS: VILANTEROL INH SCH (09:11)
[2020-01-26] MEDS: [UNRECOGNIZED DRUG - OTHER] INH SCH (09:11)
[2020-01-26 09:45] LABS: Lymphocytes % 8 % (15-49); Monocytes % (Manual) 6 % (1-12); Platelet Estimate NORMAL (NORMAL); RBC Morphology NORMAL (NORMAL); Segmented Neutrophils % 86 % (38-78)
[2020-01-26] MEDS: FAMOTIDINE/PF 20 MG/2 ML VIAL IV SCH (11:47)
--- NOTE | 2020-01-26 11:47 | Discharge Summary ---
Discharge Provider Provider Patient information: Note initiated : 01/26/20 at 11:46 am Service Date, if different from initiated Date: [] Patient: Gil Nicholas 79 y/o M admitted on 01/24/20 for left hip pain, fall. Chief Complaint: [] Date of admission: 01/24/20 19:02 Discharge date: 01/26/20 Primary care physician: Larissa Longoria Consults: 01/24/20 16:06 Consult to Physician [CONS] Stat Comment: Consulting Provider: Renzo Ferrara Reason For Exam: Physician to Consult Discharge Meds Discharge Medications Home Medications tramadol 50 mg tablet 50 mg PO Q8H PRN 01/12/19 [History Confirmed 01/24/20 Last Taken Unknown] Trelegy Ellipta 1 inh INHALATION DAILY 01/24/20 [History Confirmed 01/24/20 Last Taken 01/25/20] docusate sodium [DOK] 100 mg PO BID 01/24/20 [History Confirmed 01/24/20 Last Taken 01/25/20] guaifenesin 1,200 - 2,400 mg PO Q12H 01/24/20 [History Confirmed 01/24/20 Last Taken 01/25/20] hyoscyamine sulfate 0.125 mg SUBLINGUAL 3-4XD PRN 01/24/20 [History Confirmed 01/24/20 Last Taken 01/25/20] lorazepam [Ativan] 0.5 - 1 mg PO Q2HP PRN 01/24/20 [History Confirmed 01/24/20 Last Taken 01/25/20] morphine concentrate 10 - 20 mg PO Q1-2HP PRN 01/24/20 [History Confirmed 01/24/20 Last Taken 01/25/20] senna 8.6 mg PO DAILY 01/24/20 [History Confirmed 01/24/20 Last Taken 01/25/20] fentanyl 1 patch TRANSDERMAL Q72H 01/25/20 [History Confirmed 01/25/20 Last Taken 01/22/20] COURSE Hospital Course Hospital course: History of present illness: Mr. Nicholas is a 79 year old M presents to the ED with left hip pain. Patient was walking and tripped on his oxygen tube falling on his left hip with immediate pain. ED and found to have a left hip fracture. 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 He continues to smoke. Work-up in the ED unremarkable labs and imaging. Jessica contacted. Patient is high risk for surgery given his end-stage COPD and he understands the risks perioperatively. 01/24 No overnight events or new complaints. Patient scheduled for surgery later today. 01/25 Quite sleepy when I saw him this morning, somewhat arousable to answer simple questions. Had ORIF yesterday. A: *Left hip fracture s/p GLF: s/p ORIF(01/24) *COPD(2.5L): on hospice for copd *Tobacco abuse: *Chronic pain: *Anxiety: *?underlying dementia: Discharge diagnosis: Left hip fracture status post ground-level fall COPD tobacco abuse chronic Secondary discharge diagnosis: Suspected dementia Time Spent with Patient Time attestation: Total time spent providing and/or coordinating discharge services: Time spent: Greater than 30 minutes EXAM Constitutional Vitals: Temp Pulse Resp BP Pulse Ox 98.4 F 88 18 114/49 98 01/26/20 08:00 01/26/20 08:00 01/26/20 08:00 01/26/20 08:00 01/26/20 08:00 Discharge Data Data Completed and Pending Labs on day of discharge: Labs from last 24 hours 01/26/20 01/26/20 01/26/20 05:08 05:08 05:08 WBC 11.9 H RBC 3.42 L Hgb 11.1 L Hct 33.8 L MCV 98.8 MCH 32.5 MCHC 32.8 RDW 14.4 Plt Count 193 MPV 10.3 Gran % 83.9 H Lymph % (Auto) 7.6 L [place] % (Auto) 8.0 Eos % (Auto) 0.2 Baso % (Auto) 0.3 Gran # 10.03 H Lymph # (Auto) 0.91 L [place] # (Auto) 0.95 H Eos # (Auto) 0.02 Baso # (Auto) 0.03 Total Counted 100 Seg Neutrophils % 86 H Band Neutrophils % Not Reportable Lymphocytes % 8 L Monocytes % (Manual) 6 Platelet Estimate Normal RBC Morphology Normal PT INR Sodium 144 Potassium 4.0 Chloride 105 Carbon Dioxide 27 Anion Gap 12.0 BUN 18 Creatinine 0.8 GFR Calculation 85 Glucose 91 Uric Acid 3.6 Calcium 8.4 L Phosphorus 2.4 L Magnesium 1.8 Total Bilirubin 0.9 Direct Bilirubin 0.3 GGT 15 AST 28 ALT 14 Alkaline Phosphatase 66 Lactate Dehydrogenase 215 Total Protein 5.4 L Albumin 2.6 L Globulin 2.8 Albumin/Globulin Ratio 0.9 L Triglycerides 64 01/26/20 05:07 WBC RBC Hgb Hct MCV MCH MCHC RDW Plt Count MPV Gran % Lymph % (Auto) [place] % (Auto) Eos % (Auto) Baso % (Auto) Gran # Lymph # (Auto) [place] # (Auto) Eos # (Auto) Baso # (Auto) Total Counted Seg Neutrophils % Band Neutrophils % Lymphocytes % Monocytes % (Manual) Platelet Estimate RBC Morphology PT 15.3 H INR 1.2 H Sodium Potassium Chloride Carbon Dioxide Anion Gap BUN Creatinine GFR Calculation Glucose Uric Acid Calcium Phosphorus Magnesium Total Bilirubin Direct Bilirubin GGT AST ALT Alkaline Phosphatase Lactate Dehydrogenase Total Protein Albumin Globulin Albumin/Globulin Ratio Triglycerides Discharge Plan Patient/Caregiver Discharge Instructions Activity: as per physical therapy Diet: Regular Diet Prescriptions: Continued tramadol [Ultram] 50 mg tablet 50 mg PO Q8H PRN (Reason: Pain) RF: 0 lorazepam [Ativan] 0.5 mg tablet 0.5 - 1 mg PO Q2HP PRN (Reason: Anxiety) RF: 0 morphine concentrate 100 mg/5 mL (20 mg/mL) Solution 10 - 20 mg PO Q1-2HP PRN (Reason: Pain) RF: 0 guaifenesin 1,200 mg Tablet Extended Release 12hr 1,200 - 2,400 mg PO Q12H RF: 0 docusate sodium [DOK] 100 mg capsule 100 mg PO BID RF: 0 hyoscyamine sulfate 0.125 mg tablet, sublingual 0.125 mg sublingual 3-4XD PRN (Reason: Nausea) RF: 0 Trelegy Ellipta 100-62.5-25 mcg blister with device 1 inh INHALATION DAILY RF: 0 senna 8.6 mg Capsule 8.6 mg PO DAILY RF: 0 fentanyl 50 mcg/hr Patch 72 Hour 1 patch TRANSDERMAL Q72H RF: 0 Follow Up Plan Follow up with: Larissa Longoria MD [Primary Care Provider] - Ramírez Lopez MD [Physician] - Patient Disposition: Xfer SNF Prognosis: Fair Rehab Potential: Undetermined I certify that the patient requires SNF services: Yes Overall status at discharge: patient is progressing back to baseline Discharge Orders: Discharge Order (Routine); Ordered 01/26/20 Ordered By: Ramírez BUCKLEY VTE Deep Vein Thrombosis/Pulmonary Embolism Present on Admission: No
[2020-01-26] MEDS: ENOXAPARIN 30 MG/0.3 ML SYRINGE SQ SCH (11:48)
[2020-01-26] MEDS: DOCUSATE SODIUM 100 MG CAPSULE PO SCH (11:48)
[2020-01-26] MEDS: fentaNYL 12 MCG PATCH TOPICAL SCH (11:49)
--- NOTE | 2020-01-26 14:25 | Orthopedic Progress Note ---
SUBJECTIVE Subjective Patient information: Note initiated : 01/26/20 at 2:23 pm Service Date, if different from initiated Date: [] Patient: Gil Nicholas 79 y/o M admitted on 01/24/20 for left hip pain, fall. Chief Complaint: []doing well. pain under control Constitutional Vitals: Vital Signs Temp Pulse Resp BP Pulse Ox 97.2 F 82 20 104/57 99 01/26/20 12:00 01/26/20 12:00 01/26/20 12:00 01/26/20 12:00 01/26/20 12:00 Period Temp Pulse Resp BP Sys/Moise Pulse Ox Last 24 Hr 97.2 F-98.5 F 78-88 - 97-128/49-81 95-100 Intake and Output 01/26/20 01/26/20 01/26/20 05:59 13:59 21:59 Intake Total 240 Output Total 401 1 Balance -161 -1 Intake & Output: Intake & Output 01/26/20 01/26/20 01/26/20 05:59 13:59 21:59 Intake Total 240 Output Total 401 1 Balance -161 -1 Intake: Oral 240 Output: Void Amount 400 # of times incontinent of urine 1 1 Other: Urine Appearance Clear Urine Color Dark Yellow Urine Odor Strong # Voids 1 Expanded Lower Extremity Exam Lower leg exam: Present full ROM, swelling and tenderness; Absent crepitus, deformity, dislocation, ecchymosis and erythema OBJ DATA Labs CBC & Chem 7: 01/26/20 05:08 01/26/20 05:08 Labs: Abnormal Lab Results 01/26/20 01/26/20 01/26/20 05:08 05:08 05:08 WBC 11.9 H RBC 3.42 L Hgb 11.1 L Hct 33.8 L MCV RDW Gran % 83.9 H Lymph % (Auto) 7.6 L Gran # 10.03 H Lymph # (Auto) 0.91 L Cottle # (Auto) 0.95 H Seg Neutrophils % 86 H Lymphocytes % 8 L PT INR Calcium 8.4 L Phosphorus 2.4 L Total Protein 5.4 L Albumin 2.6 L Albumin/Globulin Ratio 0.9 L Urine Ketones Urine Urobilinogen 01/26/20 01/25/20 01/25/20 05:07 05:13 05:13 WBC 11.7 H RBC 3.50 L Hgb 11.4 L Hct 35.4 L MCV 101.1 H RDW 14.6 H Gran % 84.3 H Lymph % (Auto) 9.0 L Gran # 9.87 H Lymph # (Auto) 1.05 L Cottle # (Auto) Seg Neutrophils % Lymphocytes % PT 15.3 H INR 1.2 H Calcium 7.9 L Phosphorus Total Protein 5.6 L Albumin 2.7 L Albumin/Globulin Ratio 0.9 L Urine Ketones Urine Urobilinogen 01/24/20 01/24/20 01/24/20 20:28 13:15 13:15 WBC RBC 3.89 L Hgb 12.4 L Hct 38.4 L MCV RDW Gran % Lymph % (Auto) Gran # Lymph # (Auto) 1.48 L Cottle # (Auto) Seg Neutrophils % Lymphocytes % PT INR Calcium 8.3 L Phosphorus Total Protein Albumin 3.0 L Albumin/Globulin Ratio Urine Ketones 5/tr A Urine Urobilinogen 2.0 A Meds: Medications Hydrocodone Bitart/Acetaminophen ([place] 5/325mg) 0 tab PO Q4HP PRN; Protocol PRN Reason: Per Pain Protocol Albuterol/Ipratropium (Duoneb) 3 ml NEB Q4HP PRN PRN Reason: Shortness Of Breath Bisacodyl (Dulcolax) 10 mg [place] Q2-3DAYS PRN PRN Reason: Constipation Docusate Sodium (Colace) 100 mg PO BID [facility] Last Admin: 01/26/20 11:48 Dose: 100 mg Documented by: Enoxaparin Sodium (Lovenox) 30 mg SQ BID [facility] Last Admin: 01/26/20 11:48 Dose: 30 mg Documented by: Famotidine (Pepcid) 20 mg IV Q12 [facility] Last Admin: 01/26/20 11:47 Dose: 20 mg Documented by: Fentanyl (Duragesic) 12 mcg TOPICAL Q72 [facility] Last Admin: 01/26/20 11:49 Dose: Not Given Documented by: Potassium Chloride 40 meq/ (Dextrose) 520 mls @ 130 mls/hr IV UD PRN PRN Reason: Potassium < 3 Magnesium Sulfate (Magnesium Sulfate) 2 gm in 50 mls @ 50 mls/hr IV UD PRN PRN Reason: Magnesium </= 1.6 Lorazepam (Ativan) 0.5 - 1 mg PO Q2HP PRN PRN Reason: Anxiety Last Admin: 01/25/20 22:14 Dose: 1 mg Documented by: Magnesium Hydroxide (Milk Of Magnesia) 30 ml PO BIDP PRN PRN Reason: Constipation Morphine Sulfate (Morphine) 0 mg IV Q1HP PRN; Protocol PRN Reason: Per Pain Protocol Last Admin: 01/26/20 00:50 Dose: 4 mg Documented by: Ondansetron HCl (Zofran) 4 mg IV Q4HP PRN PRN Reason: Nausea And Vomiting Fluticasone- Umeclidin-Vilanter [ Trelegy Ellipta] Inh1 1 dose INH DAILY [facility] Last Admin: 01/26/20 09:11 Dose: Not Given Documented by: Polyethylene Glycol (Miralax) 17 gm PO DAILYP PRN PRN Reason: Constipation Polyethylene Glycol (Miralax) 17 gm PO DAILYP PRN PRN Reason: Constipation Potassium Chloride (Kdur) 40 meq PO UD PRN PRN Reason: Potssium is 3-3.5 Potassium Chloride (Kdur) 40 meq PO UD PRN PRN Reason: Potassium < 3 Senna (Senokot) 2 tab PO HS [facility] Last Admin: 01/25/20 21:43 Dose: 2 tab Documented by: Sodium Biphosphate/Sodium Phosphate (Fleets Adult) 1 dose [place] Q3-4DAYS PRN PRN Reason: Constipation Sodium Chloride (Saline Flush) 10 ml IV Q8 [facility] Last Admin: 01/26/20 06:05 Dose: Not Given Documented by: Throat Lozenges (Cepacol) 1 lozenge PO PRN PRN PRN Reason: Sore Throat A/P Narrative A/P Narrative: pod 1 s/p hip hemiarthroplasty ortho stable wbat posterior hip precautions pt pain control stable ortho - please call with questions, follow up in the office in 14 days. Time Spent With Patient Time: Total time spent is greater than 50% in coordination of care (as documented) at patient's floor/unit and/or counseling patient:
== END 2020-01-26 16:20 | DRG 470 ==
LOC: ED 12:56 → SUATTDRO 19:02 → MEDSUR 19:02
PROVIDERS: ADMIT Internal Medicine; ATTEND Orthopaedic Surgery Sports Medicine